=== PATIENT | female | born 1975 | race Caucasian/White ===

== ENCOUNTER 2020-10-11 10:22 | Emergency (ER) | payer BC ==
[~2020-10-11] VITALS: Ht 175.3 cm; Wt 142.0 kg
[2020-10-11 11:10] VITALS: BP 107/53
[2020-10-11] MEDS ORDERED: SODIUM CHLORIDE 0.9% 1000ML 1,000 ML IV STA ×2 (11:11→13:02)
[2020-10-11] MEDS ORDERED: ONDANSETRON HCL INJ 2MG/ML 2ML 2 MG/ML VIAL IV STA (11:20)
[2020-10-11] MEDS ORDERED: SODIUM CHLORIDE 0.9% 1000ML 1,000 ML ONE ×2 (11:31→13:11)
[2020-10-11] MEDS ORDERED: DIATRIZOATE MEGL/DIATRIZOA SOD 30 ML BTL PO ONE (11:36)
[2020-10-11] MEDS ORDERED: ONDANSETRON HCL INJ 2MG/ML 2ML 2 MG/ML VIAL ONE (11:38)
[2020-10-11] MEDS ORDERED: POTASSIUM CHLORIDE 20 MEQ TAB CR PO ONE (11:59)
[2020-10-11] MEDS ORDERED: ATORVASTATIN CA20 MG PO (12:02)
[2020-10-11] MEDS ORDERED: MULTIVITAMINS1 EAC6 PO (12:02)
[2020-10-11] MEDS ORDERED: HYZAAR 50-12.51 EACH (12:02)
[2020-10-11] MEDS ORDERED: POTASSIUM CHLORIDE 20 MEQ TAB CR PO STA (12:02)
[2020-10-11] MEDS ORDERED: CARVEDILOL12.5 MG PO (12:02)
[2020-10-11] MEDS ORDERED: METOPROLOL TART25 MG PO (12:02)
[2020-10-11] MEDS ORDERED: FEROSUL325 MG PO (12:02)
[2020-10-11] MEDS ORDERED: ONDANSETRON ODT4 MG PO (13:29)
== END 2020-10-11 15:38 | disposition home or self-care (01) ==
LOC: FSED 11:10
DX: R53.1 Weakness (principal); E86.0 Dehydration; E87.6 Hypokalemia; I10 Essential (primary) hypertension; E78.5 Hyperlipidemia, unspecified; Z98.84 Bariatric surgery status
CPT/HCPCS: 74176; 99284; J2405; J7030